=== PATIENT | male | born 2000 | race Caucasian/White ===

== ENCOUNTER 2020-06-21 13:06 | Outpatient (CLI) | payer OTHER, SELFPAY ==
[2020-06-22 14:04] LABS: SARS-CoV-2 RNA PCR Positive
== END 2020-06-21 13:07 | disposition home or self-care (01) ==
PROVIDERS: PCP Physician Assistant; Visit Provider Physician Assistant
DX: U07.1 COVID-19 (principal)
CPT/HCPCS: 87635; C9803; U0003

== ENCOUNTER 2022-01-19 09:04 | Emergency (ER) | payer OTHER, SELFPAY ==
[2022-01-19 09:13] VITALS: BP 114/70; PULSE 71; RESP 18; TEMP 37.2; O2SAT 99
--- NOTE | 2022-01-19 09:14 | ED.HA ---
HPI - Headache General Chief Complaint: Headache Stated Complaint: Headache Time Seen by Provider: 01/19/22 09:14 Source: patient and RN notes reviewed History of Present Illness HPI Narrative: Patient is a 21-year-old male who presents the urgent care with complaints of a headache. Patient states that started last night after his long shift and then going home to having no power and sleeping in the heat. Patient did not treat his headache with any Tylenol or ibuprofen. States that he called off work today and they are requiring him to have a work note. Patient states that the headache is much better now. Denies of any nausea, vomiting, fever or upper respiratory complaints. No acute distress noted. Patient aware of the plan of care. Some parts of this dictation were generated by voice recognition software and may contain typographical and/or grammatical inaccuracies. Related Data Home Medications Medication Instructions Recorded Confirmed No Home Medications 01/19/22 01/19/22 Allergies Allergy/AdvReac Type Severity Reaction Status Date / Time No Known Allergies Allergy Verified 01/19/22 09:17 Review of Systems Review of Systems: CONSTITUTIONAL: Denies fever, chills, or sweats. EYES: Denies visual changes, redness, or discharge. ENT: Denies rhinorrhea, congestion, sore throat, or otalgia. CARDIOVASCULAR: Denies chest pain, palpitations, or edema. RESPIRATORY: Denies cough or dyspnea. GASTROINTESTINAL: Denies abdominal pain, nausea, vomiting, or diarrhea. GENITOURINARY: Denies dysuria or hematuria. SKIN: Denies rash or itching. MUSCULOSKELETAL: Denies back pain, joint pain, or myalgia. NEUROLOGIC: Reports of a headache All other systems reviewed are negative, except as documented in HPI. PMFSH Comments At the time of my signature, I reviewed and agree with the nursing past medical, surgical, social, and family history. There is no relevant family history pertinent to the patient complaint. Exam Narrative: GENERAL: This is a well-nourished, well-developed patient, in no apparent distress. HEAD: normocephalic, atraumatic. EYES: PERRL. Sclera clear/white. Vision is grossly intact. EARS: External ears normal NOSE: External nose normal with no obvious nasal discharge, nares without redness, no rhinorrhea. THROAT: Mucous membranes moist NECK: Neck supple CARDIOVASCULAR: Regular rate and rhythm without murmurs, gallops, or rubs. RESPIRATORY: Clear to auscultation. Breath sounds equal bilaterally. No wheezes, rales, or rhonchi. SKIN: warm, intact with no suspicious lesions or rash, good texture and turgor. NEURO: awake, alert, and oriented to person, place and time. There were no obvious focal neurologic abnormalities. EXTREMITIES: No clubbing, cyanosis, or edema. Course Course Level of Care: Express Care Visit Vital Signs Vital signs: Vital Signs Temperature 98.9 F 01/19/22 09:13 Pulse Rate 71 01/19/22 09:13 Respiratory Rate 18 01/19/22 09:13 Blood Pressure 114/70 01/19/22 09:13 Pulse Oximetry 99 01/19/22 09:13 Oxygen Delivery Room Air 01/19/22 09:13 Temperature 98.9 F 01/19/22 09:13 Pulse Rate 71 01/19/22 09:13 Respiratory Rate 18 01/19/22 09:13 Blood Pressure 114/70 01/19/22 09:13 Pulse Oximetry 99 01/19/22 09:13 Oxygen Delivery Room Air 01/19/22 09:13 Reviewed MDM - Headache MDM Narrative Medical decision making narrative: Advised patient to treat his headache with either Tylenol or ibuprofen. Increase your water intake and rest. Follow-up with your PCP within 2 to 5 days or for worsening symptoms or failure to improve. Differential Diagnosis Differential diagnosis: Likely migraine, tension headache, subarachnoid hemorrhage and postconcussion syndrome Critical Care Time Critical Care Time Critical Care Time: No Discharge Plan Discharge Clinical Impression: Headache Qualifiers: Headache type: unspecified Headache chronicity pattern: unspecif
== END 2022-01-19 09:27 | disposition home or self-care (01) ==
PROVIDERS: Emergency Provider Nurse Practitioner Family
DX: R51.9 Headache, unspecified (principal)
CPT/HCPCS: 99213; G0463